=== PATIENT | male | born 1965 | race Two or more races ===

== ENCOUNTER 2020-11-24 11:24 | Emergency (ER) | payer SELFPAY ==
[~2020-11-24] VITALS: Ht 182.9 cm; Wt 81.6 kg
[2020-11-24 11:48] VITALS: BP 140/100
[2020-11-24] MEDS ORDERED: IBUPROFEN200 MG ORAL (11:56)
[2020-11-24] MEDS ORDERED: CEPHALEXIN500 M1 ORAL (11:56)
[2020-11-24] MEDS ORDERED: cefTRIAXone 1 GM in NS 55 ML IVPB ONE (12:15)
[2020-11-24] MEDS ORDERED: Thiamine 100mg tab ORAL ONE (12:15)
--- NOTE | 2020-11-24 12:32 | Emergency Room Report ---
History of Present Illness General Chief Complaint: Generalized Weakness Source: Patient Present Illness HPI 55-year-old male with past medical history of dyslipidemia, anemia presents emergency department with complaint of generalized weakness X 1 Month. He reports flulike illness 1 month ago and all of his symptoms started. Since that time he has had poor appetite and generalized weakness. He was seen by his primary care doctor on November 22, 2020 and checked for Covid which was negative. He denies any fever, cough, shortness of breath, chest pain, hemoptysis, nausea, vomiting, diarrhea, dysuria, hematuria, bloody stool, back pain or any other issues. He states that his lower extremity pain is chronic and "he wants a shot to make it better". He recently also had routine blood labs which were grossly unremarkable. He was prescribed Keflex for unknown reason as well as vitamin B12. He denies any urinary retention, bowel or bladder incontinence, midline back pain or falls. I spoke with the family who is here in the emergency department he states that patient lost 40 pounds over the past 1 month and has been complaining of decreased appetite and generalized weakness. They have follow-up with a primary care doctor next Friday. To their knowledge, patient has not had any recent fal ls or trauma. The patient's symptoms were gradual onset, severity was moderate, duration since 30 days. Quality: Generally weak Past medical history: Dyslipidemia, anemia Past surgical history: Denies Smoking: Denies Alcohol use: Denies Drug use: Denies Review of systems: CONST: No fevers or chills, No night sweats PULMONARY: No productive cough, No shortness of breath CARDIAC: No chest pain, No palpitations GI: No vomiting, No diarrhea , No melena_or_BRBPR : No dysuria, No hematuria, No discharge NEURO: No new_focal_weakness_or_numbness, No confusion, No vision changes 14 point Review of Systems is otherwise negative except per HPI Physical Exam: GENERAL: Awake_alert_ nontoxic, no acute distress Spo2 100% on RA -normal. EYES: Extraocular muscles are intact. Conjunctivae clear. Lids without swelling. No nystagmus ENT: External nose and ear normal_in_appearance. Oropharynx clear. Head_atraumatic, dry_oral_mucosa NECK: No JVD. No meningismus. No thyromegaly. Supple. Trachea midline. No mi dline cervical, thoracic, lumbar deformity. RESP: Normal respiratory effort. Symmetric rise. No stridor. Clear_to_auscultation_No_rales_No_wheezes CARDIAC: Tachycardic and regular rhytm. No_significant pedal edema. ABDOMEN: Soft. Nondistended. Nontender_No_rebound_or_guarding. No pelvic instability. MSK: Cachectic, without rigidity. Extremities without asymmetric deformity or swelling. SKIN: Warm and dry. No visible cyanosis or pallor NEUROLOGIC: Alert, oriented x3. Motor_and_sensation_grossly_intact. No truncal ataxia. Gait_normal. No ataxia. No saddle anesthesia. No midline back pain BILATERAL LOWER EXTREMITY exam: No swelling / effusion appreciated, No significant pain with passive range of motion at hip, knee, ankle Lateral malleolus: no tenderness / swelling / ecchymoses Medial malleolus: no tenderness / swelling / ecchymoses Dorsalis pedis pulse: 2+ Capillary refill: <3 seconds in all toes All toes: full range of motion without any tenderness / swelling / deformity / evidence of infection Base of the fifth metatarsal: no tenderness / swelling / ecchymoses Navicular: no tenderness / swelling / ecchymoses Calcaneus: no tenderness / swelling / ecchymoses Arch of the foot: no tenderness / swelling / ecchymoses Midfoot: no tenderness / swelling / ecchymoses Strength of dorsal / plantar flexion: normal 5/5, able to walk with smooth paul. Psych: Normal mood and affect, normal judgment and insight - COORDINATION OF CARE Case was discussed with: Patient Any labs and imaging that were ordered were interpreted as part of the medical decision making: Medical Decision Making/Plan: Differential diagnosis includes dehydration, hypovolemia, electrolyte derangement such as hyponatremia / hypoglycemia, neuromuscular junction disorder such as myasthenia gravis, GI bleed, anemia, UTI, among others. Patient is here for inadvertent weight loss, generalized weakness, and decreased appetite. He appears cachectic on examination. The symptoms have been ongoing for "1 month" if not more according to the patient. I spoke with his family who states that patient has had poor appetite. Abdominal examination is benign and nonperitoneal with no palpable (pulsatile) masses. He has no red flags for back pain. Strength in his bilateral LE is equal strong and symmetric bilaterally and he is able to walk with smooth gait. CBC demonstrates noncritical anemia and thrombocytosis. Urinalysis is unremarkable. Patient has been taking Keflex for several days and had malodorous urine here in the emergency department, therefore received NS and rocephin. I will instruct him to continue his Keflex. CMP is unremarkable. Troponin negative x1. He is not presyncopal. SF syncope criteria is not met. EKG is unremarkable for ischemia. Chest x-ray shows interstitial infiltrate versus fluid. Given the fact that patient recently endorsed flulike illness 1 month ago, will add azithromycin for atypical coverage. He otherwise is non hypoxic. Covid test was negative from 11/22/2020. Patient instructed to self isolate. Doubt cerebral CVA as symptoms have been ongoing x 1 month. The patient feels generally weak but has no focal neurologic deficits, abnormal muscle tone, hypo/hyperreflexia, or fatigability. No evidence of stroke, spinal cord emergency, neuromuscular junction disorder, or multiple sclerosis at this time. ED intervention included fluid bolus and Rocephin. Urine culture was sent. He is already taking oral Keflex at home The patient appears well hydrated and has normal vitals, no evidence of significant dehydration / hypovolemia at this time. The patient has no evidence of any emergent cause of their symptoms at this time, and appear stable for discharge home and follow up with their regular doctor for reevaluation, further workup, and continued care in 2-3 days. Recommend follow-up with heme- onc in regards to abnormal CBC and for possible malignancy work-up given recent 40 pound weight loss and B symptoms. Allergies: Coded Allergies: No Known Allergies (Unverified , 11/24/20) COVID-19 Screening Contact w/high risk pt: No Experienced COVID-19 symptoms?: No COVID-19 Testing performed [employer]ER: Yes COVID-19 Screening: Negative COVID-19 COVID-19 Testing Source: nasal Nursing Documentation-[facility] Past Medical History: No Stated History Physical Exam Vital Signs Date Time Temp Pulse Resp B/P (MAP) Pulse Ox O2 Delivery O2 Flow Rate FiO2 11/24/20 11:48 98.4 110 18 140/100 (113) 96 Room Air Sp02 EP Interpretation: reviewed, normal Medical Decision Making Diagnostic Impression: Primary Impression: Episode of generalized weakness Additional Impression: Anemia EKG Diagnostic Results Troponin ordered: Yes When was troponin ordered?: Nov 24, 2020 DAVID Chung 12-lead EKG (interpreted by me) Time: 1149 Indication: Rhythm analysis Tracing visualized and Interpreted by me. Rhythm: Sinus tachycardia Rate: 109 bpm QTc: 436 Morphology: No_significant_ST_elevations_or_depressions, No STEMI Impression: Sinus tachycardia. Normal axis. Normal intervals. Rhythm Strip Diag. Results Rhythm Strip Time: 12:31 EP Interpretation: yes Rate: 96 Rhythm: NSR, no PVC's, no ectopy Chest X-Ray Diagnostic Results Chest X-Ray Diagnostic Results : DAVID Chung Chest X-Ray: Views: 1 view(s) Indication: Generalized weakness Findings: Normal heart size. Mediastinum normal. Infiltrate versus interstitial edema Impression: Interstitial edema. No pleural effusions. No pneumothorax. The X-ray(s) were independently viewed and interpreted contemporaneously Electronically signed by Rosina evans DO Reevaluation Time: 13:00 Last Vital Signs Date Time Temp Pulse Resp B/P (MAP) Pulse Ox O2 Delivery O2 Flow Rate FiO2 11/24/20 12:05 98.0 105 18 98 Room Air 11/24/20 11:48 140/100 (113) Status: improved Disposition: HOME, SELF-CARE Admit Decision Time: 13:33 Condition: Stable Scripts Ferrous Sulfate (FERROUS SULFATE) 325 Mg Tablet.dr 325 MG ORAL DAILY for 7 Days, #14 TAB 0 Refills Prov: Rosina Johnson D.O. 11/24/20 Azithromycin* (ZITHROMAX*) 250 Mg Tablet 250 MG ORAL DAILY, #6 TAB 0 Refills Take two tables once daily for 1 day, then one tablet once daily for 4 days. Prov: Rosina Johnson D.O. 11/24/20 Referrals: NOT CHOSEN IPA/,REFERRING (PCP) Patient Instructions: Iron Deficiency Anemia, Adult, Weakness Additional Instructions: Instructions for patient/financial services director: Follow up with your physician in 1-2 days. Follow-up with hematology verifying specialist for your abnormal platelet count and anemia as discussed. Take all your medications with food. Follow-up with your doctor sooner if your condition requires a more timely clinical reevaluation. Return to the emergency department immediately if you feel that your condition is worsening or if you have any new or concerning symptoms. Review your discharge instructions and take any prescriptions given as instructed. [facility] PROVIDES FREE OR LOW-COST HEALTH SERVICES TO PEOPLE WHO CAN SHOW PROOF THAT THEY LIVE IN [facility]. TO FIND MORE CLINICS PARTNERED WITH [facility] TO PROVIDE SERVICE, PLEASE CALL . Rosina Johnson D.O. Nov 24, 2020 12:31
[2020-11-24 12:44] LABS: BASOPHILS % (AUTO) 0.7 % (0.0-2.0); EOSINOPHILS % (AUTO) 0.8 % (0.0-3.0); HEMATOCRIT 37.1 % (42.0-52.0); HEMOGLOBIN 10.4 G/DL (14.2-18.0); LYMPHOCYTES % (AUTO) 11.7 % (20.0-45.0); MEAN CORPUSCULAR VOLUME 69 FL (80-99); MONOCYTES % (AUTO) 6.6 % (1.0-10.0); NEUTROPHILS % (AUTO) 80.3 % (45.0-75.0); PLATELET COUNT 625 K/UL (150-450); RED BLOOD COUNT 5.39 M/UL (4.70-6.10); RED CELL DISTRIBUTION WIDTH 17.2 % (11.6-14.8); WHITE BLOOD COUNT 8.4 K/UL (4.8-10.8)
[2020-11-24 12:45] LABS: APPEARANCE,URINE CLEAR; BILIRUBIN, URINE NEGATIVE (NEGATIVE); COLOR,URINE PALE YELLOW; GLUCOSE, URINE (UA) NEGATIVE (NEGATIVE); KETONES,URINE NEGATIVE (NEGATIVE); LEUKOCYTE ESTERASE ,URINE NEGATIVE (NEGATIVE); NITRITE,URINE NEGATIVE (NEGATIVE); PH,URINE 5 (4.5-8.0); PROTEIN,URINE NEGATIVE (NEGATIVE); UROBILINOGEN,URINE NORMAL MG/DL (0.0-1.0)
[2020-11-24 12:54] LABS: ANION GAP 11 mmol/L (5-15); BLOOD UREA NITROGEN 12 mg/dL (7-18); CALCIUM 9.4 MG/DL (8.5-10.1); CARBON DIOXIDE 27 MMOL/L (21-32); CHLORIDE 106 MMOL/L (98-107); CREATININE 0.8 MG/DL (0.55-1.30); POTASSIUM 3.9 MMOL/L (3.5-5.1); SODIUM 144 MMOL/L (136-145)
[2020-11-24 12:58] LABS: ALANINE AMINOTRANSFERASE 19 U/L (12-78); ALBUMIN 2.9 G/DL (3.4-5.0); ALBUMIN/GLOBULIN RATIO 0.5 (1.0-2.7); ALKALINE PHOSPHATASE 90 U/L (46-116); ASPARTATE AMINO TRANSFERASE 39 U/L (15-37); BILIRUBIN,TOTAL 0.3 MG/DL (0.2-1.0)
[2020-11-24 13:00] LABS: CREATINE KINASE 81 U/L (26-308)
[2020-11-24] MEDS ORDERED: FERROUS SULFAT325 M2 ORAL (13:16)
[2020-11-24] MEDS ORDERED: ZITHROMAX250 MG ORAL (13:16)
--- NOTE | 2020-11-24 13:35 | Diagnostic Imaging Report ---
Indication: Shortness of breath Technique: XRAY Chest 1v Comparison: None Findings: Heart is mildly enlarged. There is bilateral hilar fullness. Question some mild interstitial densities in the periphery. No pleural effusion or pneumothorax. No acute osseous abnormality. IMPRESSION: Question subtle interstitial densities in the periphery of the left lung. Possibility of interstitial edema versus early interstitial infiltrates are noted.
== END 2020-11-24 14:08 | disposition home or self-care (01) ==
LOC: EMR 12:15
DX: R53.1 Weakness (principal); D64.9 Anemia, unspecified; E78.5 Hyperlipidemia, unspecified
CPT/HCPCS: 36415; 71045; 80053; 81003; 82550; 83690; 84484; 85025; 87086; 96361; 96365; 99284; J7030